=== PATIENT | female | born 1970 | race Caucasian/White ===

== ENCOUNTER 2017-05-23 18:06 | Emergency (ER) | payer BC ==
[2017-05-23] MEDS ORDERED: Acetaminophen/HYDROcodone 325-5 MG Tab PO ONE (18:33)
--- NOTE | 2017-05-23 18:53 | EDM.PDOC ---
ED HPI GENERAL MEDICAL PROBLEM - General Chief Complaint: Upper Extremity Injury/Pain Stated Complaint: L WRIST INJURY Time Seen by Provider: 05/23/17 18:20 Source of Information: Reports: Patient History Limitations: Reports: No Limitations - History of Present Illness INITIAL COMMENTS - FREE TEXT/NARRATIVE: 47-year-old female presents for evaluation treatment of injury to the left wrist. Injury occurred around 17:45 today. Patient reports that her mother had just waxed the floors. Reports that she slipped and fell. She fell onto an outstretched hand. Reports that her full body weight fell onto her left wrist. She did not hit her head or lose consciousness. She is complaining of pain to the left wrist which is radiating up towards the mid forearm. No pain to the elbow. No numbness or tingling. She is able to wiggle her fingers but reports significant pain. No treatments prior to arrival in the ER. Patient is left-handed. Patient is visiting [place] from [place]. She arrived yesterday. Plan was to be here until Sunday. Onset: Today Duration: Hour(s): (1) Location: Reports: Upper Extremity, Left Left Wrist Pain Score (Numeric/FACES): 10 - Related Data Allergies Allergy/AdvReac Type Severity Reaction Status Date / Time amoxicillin Allergy Rash Verified 05/23/17 18:16 clavulanic acid Allergy Rash Verified 05/23/17 18:16 [From Augmentin] Home Meds: Home Meds Citalopram [Celexa] 05/23/17 [History] buPROPion [Wellbutrin] 05/23/17 [History] Past Medical History Gastrointestinal History: Reports: Celiac Disease Psychiatric History: Reports: Depression - Past Surgical History Other GI Surgeries/Procedures: colon resection, chrohn disease Female Surgical History: Reports: Tubal Ligation Musculoskeletal Surgical History: Reports: Arthroscopic Knee Social & Family History - Tobacco Use Smoking Status *Q: Never Smoker Review of Systems - Review of Systems Review Of Systems: See Below Musculoskeletal: Reports: Joint Pain (left wrist), Joint Swelling (left wrist) Skin: Reports: Bruising (left dorsal hand and first finger). Denies: Wound Neurological: Denies: Numbness, Tingling ED EXAM, GENERAL - Physical Exam Exam: See Below Exam Limited By: No Limitations General Appearance: Alert, WD/WN, No Apparent Distress Respiratory/Chest: No Respiratory Distress Cardiovascular: Normal Peripheral Pulses, Regular Rate, Rhythm Peripheral Pulses: 2+: Radial (L) Extremities: Other (swelling to the distal radius and ulnar; ROM testing of the wrist deferred due to pain; able to wiggle fingers, snuff box tenderness left) Neurological: Alert, Oriented, Other (reports sensation to light touch to the left hand) Psychiatric: Normal Affect, Normal Mood Skin Exam: Dry, Normal Color ED TRAUMA EXTREMITY PROCEDURES - Splinting Left Upper Extremity Splint Site: wrist and forearm Pre-Procedure NV Status: Normal Post-Procedure NV Status: Normal Splint Material: Sling, Other (orthoglass) Splint Design: Volar, Sling Applied & Form Fitted By: Provider, Nurse Provider Post-Splint Application NV Check: NV Status Normal, Good Position Complications: No Course - Vital Signs Last Recorded V/S: Last Vital Signs Temp 36.9 C 05/23/17 18:12 Pulse 75 05/23/17 18:12 Resp 18 05/23/17 18:12 BP 145/55 H 05/23/17 18:12 Pulse Ox 100 05/23/17 18:12 - Orders/Labs/Meds Meds: Medications Discontinued Medications Generic Name Dose Route Start Last Admin Trade Name Freq PRN Reason Stop Dose Admin Hydrocodone Bitart/Acetaminophen 1 tab 05/23/17 18:33 05/23/17 18:39 Paw [place]aw 325-5 Mg PO 05/23/17 18:34 1 tab ONETIME ONE Administration - Radiology Interpretation Free Text/Narrative:: xray of the left wrist shows a fracture of the left distal radius and ulna - Re-Assessments/Exams Free Text/Narrative Re-Assessment/Exam: 05/23/17 19:47 I reviewed the xrays with the patient and her . A disc was made for her. She was splinted in a volar splint and I will have her follow-up with orthoedics in [place]. Discharge instructions as documented. Departure - Departure Time of Disposition: 19:48 Disposition: Home, Self-Care 01 Condition: Good Clinical Impression: Fracture of radius and ulna - Discharge Information Instructions: Radial Fracture Referrals: PCP,Not In Area [Primary Care Provider] - Forms: ED Department Discharge Additional Instructions: Rx for norco 5-325 #20 1-2 tabs PO every 4-6 hours prn pain given through instymeds Follow-up with orthopedics within 1 week. Please let them know that you wre seen in the ER and have a fracture of both the distal left radius and ulna. It has been recommended that she see orthopedics within 1 week. A Disc has been provided for you to bring to your orthopedics appointment. Splint on at all times. Keep covered when around water with a bagel or saran wrap. Keep the arm in the sling. You may remove the arm from the sling a few times a day and perform pendulum arm circles to prevent a frozen shoulder. Ice the area, even over the splint for 20-30 minutes 3 or 4 times a day. Elevate the arm, above the level of the heart, to help with the swelling. You given medication the ER the that can affect your ability to drive and operate machinery. Do not drive or operate machinery within 12 hours of taking prescription pain medication. You may take [id number] Tylenol or ibuprofen as needed for pain. For pain not relieved by [id number] Tylenol or Motrin, you may take Paw Paw 1 to 2 tabs every 4-[address]. [address] operate machinery within 12 hours of taking the Paw Paw. Paw Paw can be habit- forming, I recommend you take as few of these as needed to control your pain. Do not take more than 4 g of Tylenol from all sources in 1 day. Please return to the ER if your symptoms change or worsen.
--- NOTE | 2017-05-24 07:43 | CR ---
Left wrist: Three portable views of the left wrist were obtained. Comparison: No previous study. Fracture is seen transversely through the metaphysis of the distal left radius. Vertical fracture line extending into the articular margin is also seen within the radius. Slight displacement is seen. Small bony density off the ulnar styloid process which is compatible with avulsion fracture either acute or possibly old. Soft tissue swelling is noted. No additional bony abnormality is appreciated. Impression: 1. Slightly comminuted and minimally displaced distal radial fracture with articular extension. 2. Other incidental findings. Diagnostic code #3
== END 2017-05-23 20:10 | disposition home or self-care (01) ==
LOC: JD.ED 18:06
DX: S52.572A Other intraarticular fracture of lower end of left radius, initial encounter for closed fracture (principal); S52.602A Unspecified fracture of lower end of left ulna, initial encounter for closed fracture; F32.9 Major depressive disorder, single episode, unspecified; Z98.51 Tubal ligation status; Z88.1 Allergy status to other antibiotic agents; W01.0XXA Fall on same level from slipping, tripping and stumbling without subsequent striking against object, initial encounter
CPT/HCPCS: 29125; 73110; 99283; A9270